=== PATIENT | female | born 1960 | race African-American/Black ===

== ENCOUNTER 2024-09-12 15:26 | Inpatient (IN) | payer OTHER ==
[2024-09-12 16:03] VITALS: BMI 32.5
[2024-09-12] MEDS ORDERED: LOPERAMIDE HCL 2 MG CAPSULE PO PRN (17:02)
[2024-09-12] MEDS ORDERED: MAG HYDROX/AL HYDROX/SIMETH 30 ML UNIT-DOSE CUP PO PRN (17:02)
[2024-09-12] MEDS ORDERED: IBUPROFEN 400 MG TABLET (FP) PO PRN (17:02)
[2024-09-12] MEDS ORDERED: guaiFENesin 600 MG TABLET.ER (FP) PO PRN (17:02)
[2024-09-12] MEDS ORDERED: ACETAMINOPHEN 325 MG TABLET (FP) PO PRN (17:02)
[2024-09-12] MEDS ORDERED: ONDANSETRON *ODT* 4 MG TABLET SL PRN (17:02)
[2024-09-12] MEDS ORDERED: NALOXONE (NARCAN) HCL 4 MG/0.1 ML SPRAY NS PRN (17:02)
[2024-09-12] MEDS ORDERED: BISMUTH SUBSALICYLATE 524 MG/30 ML PO PRN (17:02)
[2024-09-12] MEDS ORDERED: POLYETHYLENE GLYCOL (HEALTHYLAX) 3350 17 GM PACKET PO PRN (17:02)
[2024-09-12] MEDS ORDERED: IBUPROFEN 600 MG TABLET (FP) PO PRN (17:02)
[2024-09-12] MEDS ORDERED: BENZOCAINE/MENTHOL (CHLORASEPTIC ) LOZENGE MM PRN (17:02)
[2024-09-12] MEDS ORDERED: BENZONATATE 200 MG CAPSULE PO PRN (17:02)
[2024-09-12] MEDS: MAGNESIUM HYDROX 2400MG/30ML ORAL SUSPENSION 30 ML CUP PO PRN (22:36)
[2024-09-12] MEDS: THIAMINE 100 MG TABLET PO SCH (22:36)
[2024-09-12] MEDS: MELATONIN 5 MG TABLETS PO SCH (22:36)
[2024-09-13] MEDS: HYDROCHLOROTHIAZIDE 25 MG TABLET (FP) PO SCH (09:26)
[2024-09-13] MEDS: amLODIPine BESYLATE 5 MG TABLET (FP) PO SCH (09:26)
[2024-09-13] MEDS: PRENATAL VITAMINS W/ FOLIC ACID TABLET (FP) PO SCH (09:26)
[2024-09-13] MEDS: valACYclovir HCL 500 MG TABLET (FP) PO SCH (09:27)
[2024-09-13 09:42] LABS: HEMATOCRIT 41.3 % (34.1-44.9); HEMOGLOBIN 13.7 g/dL (11.2-15.7); MCHC 33.2 g/dl (32.2-35.5); MEAN PLT VOLUME 12.4 fl (9.4-12.3); PLATELET COUNT # 255 x10^3/uL (182-369)
[2024-09-13 09:53] LABS: CHLORIDE 109 mmol/L (98-107); POTASSIUM 3.8 mmol/L (3.5-5.1); SODIUM 141 mmol/L (136-145)
[2024-09-13 10:15] LABS: CALCIUM 9.2 mg/dL (8.5-10.1)
[2024-09-13 10:16] LABS: ALBUMIN 3.6 g/dl (3.4-5.0); ANION GAP 8 mmol/L (4-13); BLOOD UREA NITROGEN 13.5 mg/dL (7-18); CO2 24 mmol/L (21-32); GLUCOSE,RANDOM 145 mg/dL (74-106)
[2024-09-13 10:19] LABS: CREATININE 0.8 mg/dL (0.55-1.3)
[2024-09-13 10:20] LABS: SGOT/AST 22 U/L (15-37); SGPT/ALT 33 U/L (13-61)
[2024-09-13 10:21] LABS: BILIRUBIN,TOTAL 0.8 mg/dL (0.2-1); TOT PROT 6.9 g/dl (6.4-8.2)
[2024-09-13 10:22] LABS: ALK PHOS 76 U/L (45-117)
[2024-09-13] MEDS: ATORVASTATIN CA 40 MG TABLET (FP) PO SCH (22:22)
[2024-09-13] MEDS: MIRTAZAPINE 15 MG TABLET (FP) PO SCH (22:22)
[2024-09-14 09:36] VITALS: BP 149/88; PULSE 95; RESP 18; TEMP 97.5
== END 2024-09-14 09:34 | disposition home or self-care (01) | DRG 897 ==
LOC: YASAS 15:26 → Y6N 18:11
PROVIDERS: ADMIT Allergy & Immunology; ATTEND Allergy & Immunology
PROC: HZ2ZZZZ Detoxification Services for Substance Abuse Treatment (ICD-10-PCS; principal; 2024-09-12)
DX: F10.20 Alcohol dependence, uncomplicated (principal); F14.20 Cocaine dependence, uncomplicated; F32.A Depression, unspecified; E78.5 Hyperlipidemia, unspecified; I10 Essential (primary) hypertension; B00.9 Herpesviral infection, unspecified; Z20.2 Contact with and (suspected) exposure to infections with a predominantly sexual mode of transmission; Z95.0 Presence of cardiac pacemaker
CPT/HCPCS: 36415; 80053; 80305; 80307; 85027; 86593; 86780; 93005; 93010